=== PATIENT | male | born 1945 | race Caucasian/White ===

== ENCOUNTER → 2017-10-31 | Day surgery (SDC) | payer MEDICARE, OTHER ==
[~2017-10-31] VITALS: Ht 177.8 cm; Wt 97.2 kg
[~2017-10-31] MED LIST: ACETAMINOPHEN 1000 MG/100 ML 100 ML IV SCH; ACETAMINOPHEN/HYDROcodone 325 MG/5 MG TAB PO PRN; ASPI81TA23 PO; ATOR40TA16 PO; BUPIVACAINE/EPINEPHRINE 0.5% PF 10 ML VIAL ONE; CHLORHEXIDINE GLUCONATE 2 % 1 PACK (2 CLOTHS) TOPICAL PRN; DO NOT ADM ANY ANTICOAGULANT DRUGS PRN; GELATIN 12 MM/7 MM FOAM ONE; LACTATED RINGER'S 1000 ML IV PRN; LIDOCAINE HCL 1% PF 5 ML SYRINGE OTHER ONE; METO1TAB9 PO; METOPROLOL TARTRATE 25 MG TAB PO PRN; MIDAZOLAM HCL 2 MG/2 ML VIAL ONE; MORPHINE SULFATE 4 MG/ML INJ IV PUSH PRN; NITR1SUB3 SL; NORC5TAB PO; OMEP40CA2 PO; ONDANSETRON ODT 4 MG TAB PO PRN; POVIDONE IODINE 5% (ANTISEPSIS KIT) 4 APPLICATIONS EACH NARE PRN; PROPOFOL 200 MG/20 ML AMP IV ONE; RAMI2.5C PO; ROCURONIUM INJ 50 MG/5 ML SYRINGE IV PUSH ONE; SODIUM CHLORID 0.9% 500 ML IV PRN; SUCCINYLCHOLINE CHLORIDE 100 MG/5 ML SYRINGE IV PUSH ONE; SUGAMMADEX SODIUM 200 MG/2 ML VIAL IV PUSH ONE; THROMBIN (TOPICAL) 5,000 UNIT VIAL ONE; VANCOMYCIN 1 GM/200 ML PREMIX IV SCH; VANCOMYCIN HCL 1000 MG VIAL ONE; ceFAZolin 1,000 MG/NS 100 ML IV SCH; ceFAZolin INJ 1,000 MG VIAL ONE; ePHEDrine/NS 25 MG/5 ML SYRINGE IV ONE
[2017-10-31 08:03] LABS: AUTOMATED NEUTROPHIL # 3.3 TH/MM3 (1.8-7.7); BASOPHIL % 0.8 % (0.0-2.0); EOSINOPHIL # 0.2 TH/MM3 (0-0.4); EOSINOPHIL % 3.9 % (0.0-4.0); HEMATOCRIT 42.6 % (39.0-51.0); HEMOGLOBIN 14.7 GM/DL (13.0-17.0); LYMPHOCYTE # 1.5 TH/MM3 (1.0-4.8); MEAN CELL VOLUME 89.6 FL (80.0-100.0); MEAN CORPUSCULAR HEMOGLOBIN 30.9 PG (27.0-34.0); MEAN CORPUSCULAR HGB CONC 34.5 % (32.0-36.0); MEAN PLATELET VOLUME 8.8 FL (7.0-11.0); MONO % 9.5 % (0.0-8.0); MONOCYTE # 0.5 TH/MM3 (0-0.9); NEUT % 58.8 % (16.0-70.0); PLATELET COUNT 153 TH/MM3 (150-450); RED BLOOD COUNT 4.76 MIL/MM3 (4.50-5.90); RED CELL DISTRIBUTION WIDTH 13.6 % (11.6-17.2); WHITE BLOOD COUNT 5.6 TH/MM3 (4.0-11.0)
[2017-10-31 08:27] LABS: CALCIUM 9.8 MG/DL (8.5-10.1); CREATININE 0.9 MG/DL (0.60-1.30)
[2017-10-31 13:28] LABS: CALCIUM 9.3 MG/DL (8.5-10.1)
[2017-10-31 13:35] LABS: CALCIUM-PROTEIN CORRECTED 9.4 MG/DL (8.5-10.1); TOTAL PROTEIN 7.1 GM/DL (6.4-8.2)
[2017-10-31 13:50] VITALS: BP 177/79; PULSE 48; RESP 20; TEMP 96.9; O2SAT 99
--- NOTE | 2017-10-31 14:19 | HHI.PR ---
cc: Chetan Matthew MD Immediate Post Op Note Procedure Date: Oct 31, 2017 Pre Op Diagnosis: Primary hyperparathyroidism Post Op Diagnosis: Same Surgeon: Chetan Matthew [employer]er(s): Iva Ma CFA Procedure: Excision LLL parathyroid gland utilizing radioguidance Frozen section LLL parathyroid gland Complications: None Specimen(s) removed: LLL parathyroid gland and fatty tissue to pathology Estimated blood loss: 5 ml Anesthesia: General Drains: None IVF (1300 ml) Patient to: PACU Patient Condition: Good Date/Time of Procedure: SEE SURGICAL CARE RECORD Chetan Matthew MD Oct 31, 2017 14:19
--- NOTE | 2017-10-31 18:26 | EKG ---
Date Performed: 10/31/2017 Time Performed: 07:26:08 PTAGE: 72 years EKG: SINUS BRADYCARDIA BORDERLINE ECG PREVIOUS TRACING : 05/11/2015 08.12 Compared to previous tracing, rate slower DOCTOR: Minnie Barros Interpretating Date/Time 10/31/2017 18:24:19
--- NOTE | 2017-11-02 03:14 | MP ---
cc: Chetan Matthew MD DATE OF OPERATION: 10/31/2017 PROCEDURE: Left lower lobe parathyroidectomy. PREOPERATIVE DIAGNOSIS: Primary hyperparathyroidism. POSTOPERATIVE DIAGNOSIS: Primary hyperparathyroidism. ANESTHESIA: General endotracheal. SURGEON: Chetan Matthew MD ESTIMATED BLOOD LOSS: 5 mL. FLUIDS: 1300 mL crystalloid. COMPLICATIONS: None. DRAINS: None. SPECIMENS: Left lower lobe parathyroid gland and fatty tissue to pathology. PROCEDURE IN DETAIL: The patient was seen in the holding area and he underwent injection with technetium-99 sestamibi. He was taken immediately to the operating room and placed on the operating table in the supine position. After an adequate level of general endotracheal anesthesia was achieved, the neck was prepped and draped in the usual fashion. Timeout was taken, confirming the correct patient, site, and procedure to be performed. The 5 mm navigator probe was utilized, and the left lower gland was seen to have some significant activity above the other glands and the thyroid gland. A transverse incision was made 2 fingerbreadths above the sternal notch. Dissection was carried down to the strap muscles, which were retracted laterally. A single small precervical vein was divided with electrocautery. The strap muscles were pulled laterally on the left. Dissection was carried down on the inferior pole of the thyroid gland, which was rotated medially. The probe demonstrated significant activity above background in the left fossa. An enlarged parathyroid gland came into view. This was dissected free from the surrounding tissues. The gland was completely excised and passed off the table. The thyroid gland was rotated medially, and further examination of the superior thyroid gland revealed small amounts of tissue. What appeared to potentially be normal parathyroid gland was excised and submitted for frozen section analysis. The left lower lobe parathyroid gland weighed 851 mg. Frozen section analysis revealed hypercellular tissue. The tissue submitted for the upper gland was simply composed of fatty tissue. No normal gland was seen. At this point, at 20 minutes after excision of the left lower gland, parathyroid hormone immunoassay was performed by taking a sample of serum. This demonstrated parathyroid hormone level to be 23.5. Thus, the abnormal gland had been removed, and with the parathyroid hormone returned to normal levels, further neck exploration was not undertaken. The strap muscles were reapproximated in the midline with 3-0 Vicryl suture, as was the platysma. The skin was closed with a 5-0 Prolene in a running subcuticular fashion. The wound was dressed with Steri-Strips. The patient was taken back to the recovery room in stable condition. Sponge, needle and instrument counts were reported to be correct. MD ALICIA Wilkinson/FRANKO , 12:24 AM , 03:13 AM
== END | disposition home or self-care (01) ==
LOC: HSDC 06:07
PROVIDERS: ATTEND Surgery Trauma Surgery
DX: E21.0 Primary hyperparathyroidism (principal); E78.5 Hyperlipidemia, unspecified; K21.9 Gastro-esophageal reflux disease without esophagitis; R94.31 Abnormal electrocardiogram [ECG] [EKG]; I25.2 Old myocardial infarction
CPT/HCPCS: 00320; 60500; 78808; 80048; 83970; 84155; 85025; 88305; 88331; 93005; A9500; J0131; J0330; J0690; J2250; J3010; J7120; J3370

== ENCOUNTER → 2017-11-06 | Outpatient (CLI) | payer MEDICARE, OTHER ==
[~2017-11-06] MED LIST changes: -ACETAMINOPHEN 1000 MG/100 ML 100 ML IV SCH; -ACETAMINOPHEN/HYDROcodone 325 MG/5 MG TAB PO PRN; -BUPIVACAINE/EPINEPHRINE 0.5% PF 10 ML VIAL ONE; -CHLORHEXIDINE GLUCONATE 2 % 1 PACK (2 CLOTHS) TOPICAL PRN; -DO NOT ADM ANY ANTICOAGULANT DRUGS PRN; -GELATIN 12 MM/7 MM FOAM ONE; -LACTATED RINGER'S 1000 ML IV PRN; -LIDOCAINE HCL 1% PF 5 ML SYRINGE OTHER ONE; -METOPROLOL TARTRATE 25 MG TAB PO PRN; -MIDAZOLAM HCL 2 MG/2 ML VIAL ONE; -MORPHINE SULFATE 4 MG/ML INJ IV PUSH PRN; -ONDANSETRON ODT 4 MG TAB PO PRN; -POVIDONE IODINE 5% (ANTISEPSIS KIT) 4 APPLICATIONS EACH NARE PRN; -PROPOFOL 200 MG/20 ML AMP IV ONE; -ROCURONIUM INJ 50 MG/5 ML SYRINGE IV PUSH ONE; -SODIUM CHLORID 0.9% 500 ML IV PRN; -SUCCINYLCHOLINE CHLORIDE 100 MG/5 ML SYRINGE IV PUSH ONE; -SUGAMMADEX SODIUM 200 MG/2 ML VIAL IV PUSH ONE; -THROMBIN (TOPICAL) 5,000 UNIT VIAL ONE; -VANCOMYCIN 1 GM/200 ML PREMIX IV SCH; -VANCOMYCIN HCL 1000 MG VIAL ONE; -ceFAZolin 1,000 MG/NS 100 ML IV SCH; -ceFAZolin INJ 1,000 MG VIAL ONE; -ePHEDrine/NS 25 MG/5 ML SYRINGE IV ONE
[2017-11-06 16:23] LABS: CALCIUM 8.9 MG/DL (8.5-10.1)
[2017-11-06 16:25] LABS: CALCIUM-PROTEIN CORRECTED 8.8 MG/DL (8.5-10.1); TOTAL PROTEIN 7.3 GM/DL (6.4-8.2)
== END ==
LOC: CLAB 14:18
PROVIDERS: ATTEND Surgery Trauma Surgery
DX: E21.2 Other hyperparathyroidism (principal)
CPT/HCPCS: 36415; 84155